=== PATIENT | male | born 1965 | race Caucasian/White ===

== ENCOUNTER 2018-07-16 22:09 | Emergency (ER) | payer OTHER, SELFPAY ==
[2018-07-16 22:31] VITALS: BP 157/87; PULSE 94; RESP 18; TEMP 36.5; O2SAT 99; BMI 24.2
--- NOTE | 2018-07-16 22:35 | PC.NURSE ---
He arrived with noel wrap and knee immobilizer and compression stocking in place.He received treatment at hospital in [place] and was discharged.He has crutches also.
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
[2018-07-16 23:06] VITALS: BP 157/87; PULSE 94; RESP 18; TEMP 36.5; O2SAT 99; BMI 24.2
--- NOTE | 2018-07-17 02:20 | ED_ITS ---
HPI - Extremity Injury (Lower) General Chief Complaint: Extremity Injury, Lower Stated Complaint: Lt Leg Pain Time Seen by Provider: 07/16/18 22:10 Source: patient and family Mode of arrival: ambulatory Limitations: no limitations History of Present Illness HPI Narrative: 52-year-old nonsmoker, healthy male presents with his for evaluation of a left knee injury suffered on Saturday. Patient is an avid climber and hiker and was hiking up in [place] on a [place] field when he fell and twisted his knee. He has had increasing pain and swelling of his knee over the past few days. He denies other injuries such as head or neck pain. His knee has become quite swollen and hurts worse with any ambulation. He denies numbness, tingling or weakness of his lower extremity. He was evaluated at an outside facility and had normal x-ray and was given a knee immobilizer and crutches. He presents today because of increasing swelling of his knee including purple ecchymosis on his anterior lower michaels. MD complaint: knee injury Onset (ago): day(s) Injury: Left: knee Type of Injury: unknown Place: street/outdoors Severity: moderate Relieving factors: immobilization Exacerbating factors: weight bearing and movement Context: fall Associated symptoms: snap/pop sensation, swelling and able to partially bear weight Other symptoms: none Treatments prior to arrival: cold therapy, bandage, NSAIDS and splint Review of Systems Review of Systems All systems reviewed & are unremarkable except as noted in HPI and below Constitutional Denies chills, Denies fever(s), Denies lethargy and Denies weakness Eyes Denies change in vision, Denies eye discharge, Denies irritation and Denies loss of vision ENT Ears, Nose, Mouth, and Throat: Denies change in voice, Denies neck pain and Denies sore throat Cardiovascular Denies chest pain, Denies irregular heart rhythm, Denies lightheadedness, Denies palpitations, Denies dyspnea, Denies dyspnea on exertion and Denies orthopnea Respiratory Denies cough, Denies dyspnea, Denies dyspnea on exertion and Denies wheezing Gastrointestinal Gastrointestinal: Denies abdominal pain, Denies change in bowel habits, Denies diarrhea, Denies nausea and Denies vomiting Genitourinary Denies hematuria, Denies flank pain, Denies urinary incontinence and Denies urinary urgency Musculoskeletal Reports joint swelling, Reports limited range of motion and Denies neck pain Integumentary/Breasts Denies pruritus, Denies erythema, Denies rash and Denies wounds Neurologic Denies confusion, Denies loss of vision and Denies weakness Psychiatric Denies anxiety, Denies confusion, Denies depression, Denies homicidal ideation and Denies suicidal ideation Endocrine Denies palpitations Hematologic/Lymphatic Denies easy bruising Allergic/Immunologic Denies wheezing [facility] Social History Smoking Status: Never smoker Exam Narrative Exam Narrative: GEN: AOx3 and in mild distress EYES: Pupils are equal, round, and reactive to light and accommodation. Extraoccular muscles are intact bilaterally. There is no subconjunctival hemorrhage or exudate. CHEST: Lungs are clear to auscultation bilaterally and free of wheezes, rales, or rhonchi. Heart rate is regular rhythm, there are no murmurs, clicks, rubs, or gallops. There is no chest wall tenderness. ABD: Abdomen is soft and nontender. There is no guarding or rebound. Bowel sounds are normal in all 4 quadrants. There is no mass or organomegaly. EXT: Decreased range of motion of left knee secondary to pain and significant swelling. There is a large effusion but no erythema or warmth. There is swelling of the lower extremity including purplish red ecchymosis along the anterior michaels and medial ankle. He has intact dorsalis pedis and sensation with cap refill less than 2 sec. Complete ligamentous examination very difficult given significant swelling and pain SKIN: Warm, pink, and dry. No erythema or rash Initial Vital Signs Initial Vital Signs: Vital Signs Temperature 97.7 F 07/16/18 22:31 Pulse Rate 94 H 07/16/18 22:31 Respiratory Rate 18 07/16/18 22:31 Blood Pressure 157/87 H 07/16/18 22:31 Pulse Oximetry 99 07/16/18 22:31 Course Orders Ordered: ED Orders 07/16/18 23:00 CT LE LT wo con Stat Consultations Consultation #1: Discussion with on-call orthopedics who was able to review the CT. He suggests weight-bearing as tolerated with knee immobilizer, crutches and follow up for likely MRI Vital Signs - 8 hr 07/16/18 22:31 07/16/18 23:06 Temperature 97.7 F 97.7 F Pulse Rate 94 H 94 H Respiratory Rate 18 18 Blood Pressure 157/87 H 157/87 H Pulse Oximetry 99 99 MDM - Extremity Injury (Lower) Differential Diagnosis Likely acute internal derangement of knee and fracture of femur Medical Records Attestation: I reviewed the patient's medical records. Imaging Data Knee CT: Radiologist's impression: small avulsion fracture of posterior lateral tibia Discharge Plan Departure Patient Disposition: Home Clinical Impression: Acute internal derangement of left knee Discharge Date/Time: 07/16/18 23:51 Interventions: ED Discharge Assessment Last Done: 07/16/18 23:45 Instructions: DI for Knee Pain Activity Restrictions/Additional Instructions: *You have been diagnosed with [ internal derangement left knee with avulsion fracture ] *What to do: *Take medications as directed *Follow up with Orthopedics, call for an appointment. Let them know you were seen in the Emergency Department and that we ask that you be seen in follow up *Return to ER if you should have any new, worsening or concerning symptoms * weight-bearing as tolerated Referrals: Good Yoder MD [Physician] -
== END 2018-07-16 23:52 | disposition home or self-care (01) ==
PROVIDERS: Emergency Provider Emergency Medicine; Family Provider Family Medicine; PCP Family Medicine
DX: M23.92 Unspecified internal derangement of left knee (principal); W01.0XXA Fall on same level from slipping, tripping and stumbling without subsequent striking against object, initial encounter
CPT/HCPCS: 73700; 99281; 99282; 99283

== ENCOUNTER → 2018-10-28 15:52 | Outpatient (CLI) | payer OTHER, SELFPAY | DX: Z23 Encounter for immunization (principal) | CPT/HCPCS: 90471; 90686 ==

== ENCOUNTER → 2019-09-22 10:27 | Outpatient (CLI) | payer OTHER, SELFPAY | DX: Z23 Encounter for immunization (principal) | CPT/HCPCS: 90471; 90686 ==

== ENCOUNTER → 2020-08-19 | Outpatient (CLI) | payer OTHER, SELFPAY | PROVIDERS: Referring Provider Internal Medicine; Visit Provider Internal Medicine | DX: Z23 Encounter for immunization (principal) | CPT/HCPCS: 90471; 90686 ==

== ENCOUNTER → 2020-10-19 10:57 | Outpatient (CLI) | payer OTHER, SELFPAY ==
[2020-10-19 13:17] LABS: COVID19 -Nasal RAPID Negative (Negative)
== END ==
PROVIDERS: Visit Provider Nurse Practitioner
DX: Z20.828 Contact with and (suspected) exposure to other viral communicable diseases (principal)
CPT/HCPCS: 87635

== ENCOUNTER → 2020-10-20 10:03 | Outpatient (CLI) | payer OTHER, SELFPAY ==
[2020-10-20] MEDS: COVID-19 VACC(MODERNA-1)/PF 100 MCG/0.5 ML VIAL IM (10:13)
== END ==
PROVIDERS: Visit Provider Internal Medicine
DX: Z23 Encounter for immunization (principal)
CPT/HCPCS: 0011A; 91301

== ENCOUNTER → 2020-11-17 14:18 | Outpatient (CLI) | payer OTHER, SELFPAY ==
[2020-11-17] MEDS: COVID-19 VACC #2, MRNA(MOD) 100 MCG/0.5 ML VIAL IM (14:25)
== END ==
PROVIDERS: Visit Provider Internal Medicine
DX: Z23 Encounter for immunization (principal)
CPT/HCPCS: 0012A; 91301

== ENCOUNTER 2020-12-05 20:49 | Emergency (ER) | payer OTHER, SELFPAY ==
[2020-12-05 21:07] VITALS: BP 149/82; PULSE 101; RESP 12; TEMP 36.1; O2SAT 97; BMI 24.2
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
[2020-12-05] MEDS: OXYCODONE/APAP 5/325 PREPACK 1 BOTTLE MISC (21:45)
[2020-12-05] MEDS: IBUPROFEN 400 MG TABLET PO (21:45)
[2020-12-05] MEDS: OXYCODONE/ACETAMINOPHEN 5/325 TABLET 1 TAB PO (21:45)
[2020-12-05 22:33] VITALS: BP 151/83; PULSE 96; RESP 14; O2SAT 92
== END 2020-12-05 22:34 | disposition home or self-care (01) ==
PROVIDERS: Emergency Provider Emergency Medicine
DX: M23.91 Unspecified internal derangement of right knee (principal); X50.1XXA Overexertion from prolonged static or awkward postures, initial encounter
CPT/HCPCS: 99281; 99283

== ENCOUNTER 2021-01-23 23:17 | Emergency (ER) | payer OTHER, SELFPAY ==
[2021-01-23 23:22] VITALS: BP 166/92; PULSE 96; RESP 20; TEMP 37.3; O2SAT 98
--- NOTE | 2021-01-23 23:29 | DI.US.S_ITS ---
PROCEDURE: US PERIPH VENOUS LOW EXTREM RT INDICATIONS: EDEMA POST OP TECHNIQUE: Real-time imaging, as well as color and pulse Doppler interrogation, were performed of the lower extremity deep veins from the inguinal ligament to the popliteal fossa. COMPARISON: None. FINDINGS: The common femoral, femoral and popliteal veins are normally compressible, and free of intraluminal thrombus. Color and pulse Doppler demonstrate normal phasic intraluminal flow. There is normal augmentation response to distal compression maneuver. IMPRESSION: No DVT in the right lower extremity. Dictated by: Sky Townsend M.D. on 01/24/2021 at 7:34 Approved by: Sky Townsend M.D. on 01/24/2021 at 7:34
[2021-01-23 23:54] LABS: Add Manual Diff / Slide Review NO; Basophils Absolute Auto 100 /uL (0-100); Basophils Percent Auto 1.3 % (0-2); Eosinophils Absolute Auto 300 /uL (0-450); Eosinophils Percent Auto 3.6 % (2-4); Hematocrit 41.5 % (41-53); Lymphocytes Absolute Auto 2200 /uL (1100-4500); Lymphocytes Percent Auto 26.3 % (25-40); Mean Corpuscular HGB Conc 33.8 % (30-36); Mean Corpuscular Hemoglobin 30.5 PG (26-34); Mean Corpuscular Volume 90.1 fL (80-100); Monocytes Absolute Auto 700 /uL (0-900); Monocytes Percent Auto 8.8 % (3-14); Neutrophils Absolute Auto 4900 /uL (1500-7000); Platelet Count 420 X10^3/uL (150-400); Red Cell Distribution Width 12.5 % (11.6-14.8); White Blood Cell Count 8.2 X10^3/uL (4.5-11.0)
[2021-01-24] LABS: Blood Urea Nitrogen 23 mg/dL (9-20); Calcium 9.1 mg/dL (8.4-10.2); Carbon Dioxide 26 mmol/L (22-32); Chloride 105 mmol/L (98-107); Estimated Glomerular Filt Rate > 60.0 mL/min (>60); Glucose 113 mg/dL (70-100); HEMOLYSIS 17 (0-50); Potassium 3.7 mmol/L (3.4-5.1); Sodium 139 mmol/L (137-145)
[2021-01-24 00:20] VITALS: BP 149/78; PULSE 95; RESP 16; O2SAT 96
--- NOTE | 2021-01-24 01:56 | ED.EXTPRO ---
HPI - Extremity Problem General Chief complaint: Extremity Problem,Nontraumatic Stated complaint: right leg bruising,swelling, hasnt felt right Time Seen by Provider: 01/23/21 23:21 Source: patient Mode of arrival: Ambulatory Limitations: no limitations History of Present Illness HPI Narrative: 55-year-old male nonsmoker without any significant medical history presents with a chief complaint of dark purple bruising to the right medial thigh and some calf pain over the past week. He recently had an ACL repaired with our orthopedic group. He presents with concern about a possible deep vein clot. He denies any chest pain or shortness of breath but did state that he felt some palpitations earlier. He denies any numbness, tingling or weakness. He denies any chest pain or shortness of breath. He does have some pain in his calf and minimal pain in his knee. His discomfort is made worse with motion and improves with rest. MD Complaint: extremity pain and extremity swelling Onset (ago): day(s) Pain Consistency: constant Location: right, lower extremity and knee Quality: aching Radiation: none Relieving factors: nothing Exacerbating factors: weight bearing and walking Associated symptoms: other Context: recent surgery/procedure Related Data Allergies Allergy/AdvReac Type Severity Reaction Status Date / Time No Known Drug Allergies Allergy Unverified 12/05/20 21:10 Review of Systems Constitutional Constitutional: Denies chills, Denies fatigue, Denies fever(s), Denies frequent falls, Denies lethargy and Denies weakness Eyes Eyes: Denies change in vision, Denies eye discharge, Denies irritation and Denies loss of vision ENT Ears, Nose, Mouth, and Throat: Denies change in voice, Denies dizziness, Denies neck pain, Denies sore throat and Denies throat swelling Cardiovascular Cardiovascular: Denies chest pain, Denies irregular heart rhythm, Denies lightheadedness, Denies palpitations, Denies dyspnea, Denies dyspnea on exertion and Denies orthopnea Respiratory Respiratory: Denies cough, Denies dyspnea, Denies dyspnea on exertion and Denies wheezing Gastrointestinal Gastrointestinal: Denies abdominal pain, Denies change in bowel habits, Denies diarrhea, Denies nausea and Denies vomiting Musculoskeletal Musculoskeletal: Reports arthralgias, Reports joint swelling, Denies neck pain and Denies numbness Integumentary/Breasts Skin/Breast: Denies pruritus, Denies erythema, Denies rash, Reports unusual bruising and Denies wounds Neurologic Neurologic: Denies behavioral changes, Denies confusion, Denies dizziness, Denies frequent falls, Denies loss of vision, Denies numbness and Denies weakness Psychiatric Psychiatric: Denies anxiety, Denies behavioral changes, Denies confusion, Denies depression, Denies homicidal ideation and Denies suicidal ideation Endocrine Endocrine: Denies fatigue, Denies flushing and Denies palpitations Hematologic/Lymphatic Hematologic/Lymphatic: Denies easy bruising Allergic/Immunologic Allergic/Immunologic: Denies urticaria, Denies throat swelling and Denies wheezing Patient History Social History Smoking Status: Never smoker Smoking Status: Never smoker alcohol intake frequency: a few times a month Substance Use Type: does not use Exam Narrative Exam Narrative: GENERAL: [56] year old patient appears stated age. Well-nourished, well-developed patient, in mild distress. HEAD: Atraumatic. Normocephalic. EYES: Pupils equal round and reactive. Extraocular motions intact. No scleral icterus. No injection or drainage. ENT: Nose without bleeding, purulent drainage. Throat without erythema, tonsillar hypertrophy or exudate. Airway patent. NECK: Trachea midline. Non tender CARDIOVASCULAR: Regular rate and rhythm without murmurs, gallops, or rubs. RESPIRATORY: Clear to auscultation. Breath sounds equal bilaterally. No wheezes, rales, or rhonchi. GASTROINTESTINAL: Abdomen soft, non-tender, nondistended. EXTREMITIES: Right knee with full but painful range of motion, minimal swelling, no erythema, warmth. Large area of dark purple ecchymosis in the right medial thigh without swelling or erythema. Mild pain on palpation of calf, no significant swelling, erythema or warmth. Sensation and pulses intact. Compartments soft BACK: Nontender without deformity or crepitance. No flank tenderness. NEURO: AOx3. SKIN: No rash or erythema of visible areas Initial Vital Signs Initial Vital Signs: Vital Signs Temperature 99.2 F 01/23/21 23:22 Pulse Rate 96 H 01/23/21 23:22 Respiratory Rate 20 01/23/21 23:22 Blood Pressure 166/92 H 01/23/21 23:22 Pulse Oximetry 98 01/23/21 23:22 Course Orders Ordered: ED Orders 01/23/21 23:29 periph venous low extrem rt Stat 01/23/21 23:40 Basic Metabolic Panel Stat Complete Blood Count AUTO DIFF Stat Vital Signs Vital signs: Vital Signs - 8 hr 01/23/21 23:22 01/24/21 00:20 Temperature 99.2 F Pulse Rate 96 H 95 H Respiratory Rate 20 16 Blood Pressure 166/92 H 149/78 H Pulse Oximetry 98 96 MDM - Extremity (Nontraumatic) Lab Data Result diagrams: 01/23/21 23:40 01/23/21 23:40 Labs: Lab Results 01/23/21 01/23/21 Range/Units 23:40 23:40 WBC 8.2 (4.5-11.0) X10^3/uL RBC 4.60 (4.5-5.9) X10^6/uL Hgb 14.0 (13.5-17.5) g/dL Hct 41.5 (41-53) % MCV 90.1 (80-100) fL MCH 30.5 (26-34) PG MCHC 33.8 (30-36) % RDW 12.5 (11.6-14.8) % Plt Count 420 H (150-400) X10^3/uL Neut % (Auto) 60.0 (50-75) % Lymph % (Auto) 26.3 (25-40) % [place] % (Auto) 8.8 (3-14) % Eos % (Auto) 3.6 (2-4) % Baso % (Auto) 1.3 (0-2) % Neut # (Auto) 4900 (4709-3003) /uL Lymph # (Auto) 2200 (4686-0730) /uL [place] # (Auto) 700 (0-900) /uL Eos # (Auto) 300 (0-450) /uL Baso # (Auto) 100 (0-100) /uL Sodium 139 (137-145) mmol/L Potassium 3.7 (3.4-5.1) mmol/L Chloride 105 (98-107) mmol/L Carbon Dioxide 26 (22-32) mmol/L BUN 23 H (9-20) mg/dL Creatinine 0.82 (0.66-1.25) mg/dL Estimated GFR > 60.0 (>60) mL/min BUN/Creatinine Ratio 28.0 H (6-22) Glucose 113 H (70-100) mg/dL Calcium 9.1 (8.4-10.2) mg/dL Imaging Data US - DVT: Radiologist's Impression: No DVT MDM Narrative Medical decision making narrative: Patient with postoperative bruising and some discomfort presents with concern for DVT. Though the amount of ecchymosis is impressive there is no significant or unexpected swelling, erythema or tenderness. Ultrasound demonstrates compressible vessels and no suggestion of clot. H&H is stable, no signs of anemia. Compartments are soft and no suggestion of compartment syndrome. Knee examination is consistent with expected postsurgical findings, no significant effusion, erythema or warmth nor significant pain with passive range of motion to suggest septic arthritis. Extensive discussion regarding return precautions and importance of close follow-up. Patient and significant other understand and are in agreement with the plan and the diagnosis. Questions answered to their apparent satisfaction Discharge Plan Departure Patient Disposition: Home Clinical Impression: Hematoma Instructions: DI for Hematoma (Bruise) Activity Restrictions/Additional Instructions: *You have been diagnosed with [postsurgical hematoma of right lower extremity, ultrasound shows no clot within the deep vein and blood counts are very reassuring.] *What to do: *Take medications as directed *Follow up with your orthopedic provider in 2-3 days, call for an appointment. Let them know you were seen in the Emergency Department and that we ask that you be seen in follow up *Return to ER if you should have any new, worsening or concerning symptoms, such as [worsening pain, swelling, fever greater than 101 F, or other bothersome symptoms ]
== END 2021-01-24 00:21 | disposition home or self-care (01) ==
PROVIDERS: Emergency Provider Emergency Medicine
DX: L76.32 Postprocedural hematoma of skin and subcutaneous tissue following other procedure (principal)
CPT/HCPCS: 36415; 80048; 85025; 93971; 99283; 99284

== ENCOUNTER → 2021-06-14 08:19 | Outpatient (CLI) | payer OTHER, SELFPAY ==
[2021-06-14 12:16] LABS: COVID-19 CEPHEID PCR (VTM/NP) POSITIVE (Negative)
== END ==
PROVIDERS: Visit Provider Physician Assistant
DX: U07.1 COVID-19 (principal)
CPT/HCPCS: U0003

== ENCOUNTER 2021-08-07 07:47 | Emergency (ER) | payer OTHER, SELFPAY ==
[2021-08-07 08:39] VITALS: BP 146/90; PULSE 79; RESP 18; TEMP 37; O2SAT 98; BMI 25.0
--- NOTE | 2021-08-07 08:50 | ED_ITS ---
HPI - Extremity Injury (Lower) General Chief Complaint: Extremity Injury, Lower Stated Complaint: Left knee injury Time Seen by Provider: 08/07/21 08:50 Source: patient Mode of arrival: Ambulatory Limitations: no limitations History of Present Illness HPI Narrative: Patient is a 56-year-old male with previous left knee injury presenting with 3 days of left knee pain. He says 3 days ago at work he was going down the stairs when he heard a pop. It became swollen and itchy. Swelling and pain have gone down will wearing a brace. However it is still quite painful. He previously had an ACL repair a few years ago. He has no numbness tingling or weakness. Related Data Allergies Allergy/AdvReac Type Severity Reaction Status Date / Time No Known Drug Allergies Allergy Verified 08/07/21 08:39 Review of Systems Review of Systems Narrative: GENERAL: Denies chills,fever HEENT: Denies throat pain RESPIRATORY: Denies dyspnea, cough, wheezing CARDIOVASCULAR: Denies chest pain, palpitations GASTROINTESTINAL: Denies nausea, vomiting MUSCULOSKELETAL: See HPI SKIN: No rash, no laceration, no pruritus NEUROLOGIC: Denies weakness, dizziness, headache, numbness 8 point review of systems is negative except for those stated above and HPI Patient History Social History Smoking Status: Never smoker Smoking Status: Never smoker alcohol intake frequency: a few times a month Substance Use Type: does not use Exam Initial Vital Signs Initial Vital Signs: Vital Signs Temperature 98.6 F 08/07/21 08:39 Pulse Rate 79 08/07/21 08:39 Respiratory Rate 18 08/07/21 08:39 Blood Pressure 146/90 H 08/07/21 08:39 Pulse Oximetry 98 08/07/21 08:39 GENERAL: Well-appearing, well-nourished and in no acute distress. CARDIOVASCULAR: peripheral pulses in tact, cap refill <2 sec RESPIRATORY: No respiratory distress, speaks in full sentences without difficulty EXTREMITIES: Normal range of motion, no clubbing or edema. Neurovascularly intact. left knee mild swelling no erythema good flexion and extension no had no numbness tingling or weakness distal pedal pulses intact NEUROLOGICAL: Cranial nerves II through XII grossly intact. Normal gait and speech. SKIN: Warm, dry, no petechiae, no rashes or lesions. Course Orders Ordered: ED Orders 08/07/21 08:58 XR knee LT 3V Stat Vital Signs Vital signs: Vital Signs - 8 hr 08/07/21 08:39 Temperature 98.6 F Pulse Rate 79 Respiratory Rate 18 Blood Pressure 146/90 H Pulse Oximetry 98 MDM - Extremity Injury (Lower) Imaging Data Extremity x-ray #1: Radiologist's Impression: PROCEDURE:? XR KNEE LT 3V ? INDICATIONS:? pain injury ? TECHNIQUE:? 3 views of the knee were acquired.? ? COMPARISON:? None. ? FINDINGS:? ? Bones:? Patient is status post prior ACL repair with postsurgical changes seen in lateral femoral condyle and medial portion of proximal tibia.? No fractures or dislocations.? Mild tricompartmental osteoarthritis is seen more prominent in medial femoral tibial compartment.? No suspicious bony lesions.? ? Soft tissues:? Small suprapatellar joint effusion is no.? No suspicious soft tissue calcifications.? ? ? IMPRESSION:? Prior ACL repair.? Anatomic left knee alignment.? No acute fracture or dislocation.? Mild tricompartmental osteoarthritis.? Small joint effusion. ? ? Dictated by: Roel Gutiérrez M.D. on 08/07/2021 at 9:18 ? ? [facility] Narrative Medical decision making narrative: Patient does have some mild swelling of his left knee previous injury x-ray is negative. This time recommend patient follow-up. He is offered pain medications but does not need any at this time. Discharge Plan Departure Patient Disposition: Home Clinical Impression: Strain of knee and leg, left Qualifiers: Encounter type: initial encounter Qualified Code(s): S86.912A - Strain of unsp ecified muscle(s) and tendon(s) at lower leg level, left leg, initial encounter Instructions: DI for Knee Sprain Activity Restrictions/Additional Instructions: *You have been diagnosed with left knee sprain *What to do: At this time recommend elevating icing and wearing a knee brace while active. He will need to follow-up with orthopedics. Possible outpatient MRI. *Continue to take medications as directed Continue Tylenol and Motrin as directed *Follow up with your primary care provider in 2-[address] Jordan or Orthopedics this week *Return to ER if you should have increasing swelling, redness, fever, pain or any new, worsening or concerning symptoms Referrals: [facility] [Provider Group] Miscellaneous,Doctor[facility] [Primary Care Provider] -
--- NOTE | 2021-08-07 08:58 | DI.RAD.S_ITS ---
PROCEDURE: XR KNEE LT 3V INDICATIONS: pain injury TECHNIQUE: 3 views of the knee were acquired. COMPARISON: None. FINDINGS: Bones: Patient is status post prior ACL repair with postsurgical changes seen in lateral femoral condyle and medial portion of proximal tibia. No fractures or dislocations. Mild tricompartmental osteoarthritis is seen more prominent in medial femoral tibial compartment. No suspicious bony lesions. Soft tissues: Small suprapatellar joint effusion is no. No suspicious soft tissue calcifications. IMPRESSION: Prior ACL repair. Anatomic left knee alignment. No acute fracture or dislocation. Mild tricompartmental osteoarthritis. Small joint effusion. Dictated by: Roel Gutiérrez M.D. on 08/07/2021 at 9:18 Approved by: Roel Gutiérrez M.D. on 08/07/2021 at 9:19
== END 2021-08-07 09:45 | disposition home or self-care (01) ==
PROVIDERS: Emergency Provider Emergency Medicine
DX: S86.912A Strain of unspecified muscle(s) and tendon(s) at lower leg level, left leg, initial encounter (principal); Y93.01 Activity, walking, marching and hiking; Y99.0 Civilian activity done for income or pay
CPT/HCPCS: 73562; 99281; 99283

== ENCOUNTER → 2021-09-08 17:17 | Outpatient (CLI) | payer OTHER, SELFPAY ==
[2021-09-08] MEDS: COVID-19 VACC #3, MRNA(MOD) 50 MCG/0.25 ML VIAL IM (17:41)
== END ==
PROVIDERS: Visit Provider Internal Medicine
DX: Z23 Encounter for immunization (principal)
CPT/HCPCS: 0013A; 91301

== ENCOUNTER → 2022-08-24 13:57 | Outpatient (CLI) | payer OTHER, SELFPAY | PROVIDERS: Referring Provider Internal Medicine; Visit Provider Internal Medicine | DX: Z23 Encounter for immunization (principal) | CPT/HCPCS: 90471; 90686 ==

== ENCOUNTER → 2023-09-20 13:59 | Outpatient (CLI) | payer OTHER, SELFPAY | PROVIDERS: Referring Provider Family Medicine; Visit Provider Family Medicine | DX: Z23 Encounter for immunization (principal) | CPT/HCPCS: 90471; 90686 ==

== ENCOUNTER 2023-11-23 08:30 | Emergency (ER) | payer OTHER, SELFPAY ==
[2023-11-23] MEDS: PROPARACAINE 0.5% OPHTH SOL 1 DROPS EYE-RIGHT (08:36)
[2023-11-23] MEDS: FLUORESCEIN 1 MG STRIP EYE-BOTH (08:36)
[2023-11-23 08:40] VITALS: BP 149/98; PULSE 99; RESP 16; TEMP 36.6; O2SAT 99; BMI 25.0
--- NOTE | 2023-11-23 08:43 | ED.GENADULT ---
HPI - General Adult General Chief complaint: Eye Problems Stated complaint: VISION CHANGES IN R/EYE Time Seen by Provider: 11/23/23 08:31 Source: patient Mode of arrival: Ambulatory Limitations: no limitations History of Present Illness HPI narrative: 58-year-old male. 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 He does use eyedrops. His eye doctor tells him to place them in both eyes. Yesterday he had onset of some floaters and flashes specifically in his right eye. He also had a slight headache yesterday. Floaters and flashes returned today. He has no left eye tenderness. No loss of vision. No sinus congestion. No upper or lower extremity numbness or weakness. Related Data Allergies Allergy/AdvReac Type Severity Reaction Status Date / Time No Known Drug Allergies Allergy Verified 08/07/21 08:39 Review of Systems Constitutional Constitutional: Reports system reviewed and no additional complaints, except as documented Eyes Eyes: Reports system reviewed and no additional complaints, except as documented ENT Ears, Nose, Mouth, and Throat: Reports system reviewed and no additional complaints, except as documented Integumentary/Breasts Skin/Breast: Reports system reviewed and no additional complaints, except as documented Neurologic Neurologic: Reports system reviewed and no additional complaints, except as documented Patient History Social History Smoking Status: Never smoker Smoking Status: Never smoker alcohol intake frequency: a few times a month Substance Use Type: does not use Exam Initial Vital Signs Initial Vital Signs: Vital Signs Temperature 97.9 F 11/23/23 08:40 Pulse Rate 99 H 11/23/23 08:40 Respiratory Rate 16 11/23/23 08:40 Blood Pressure 149/98 H 11/23/23 08:40 Pulse Oximetry 99 11/23/23 08:40 Oxygen Delivery Method Room Air 11/23/23 08:40 HENMT Head: normal to inspection and normocephalic Face and sinus: normal facial exam Eyes Pupils: PERRL EOM: EOM intact bilaterally Other: Intra-ocular pressure left eye 22, intra-ocular pressure right eye 20. Fluorescein used in the right eye. No corneal abrasion or foreign body noted. Bedside ultrasound of the right eye shows no retinal detachment. Skin General: no rashes or lesions noted Neuro General: patient alert, patient awake, patient oriented x3 and moves all extremities Cognition: normal cognition Speech: speech normal Gait: normal gait Extrem General: normal to inspection Course Orders Ordered: ED Orders 11/23/23 08:56 CT head/brain wo con Stat Discontinued Medications Fluorescein Sodium (Fluorescein 1 Mg Strip) 1 mg EYE-BOTH NOW ONE Stop: 11/23/23 08:33 Last Admin: 11/23/23 08:36 Dose: 1 mg Documented By: RB Proparacaine HCl (Proparacaine 0.5% Ophth Lela) 1 drops EYE-RIGHT NOW ONE Stop: 11/23/23 08:33 Last Admin: 11/23/23 08:36 Dose: 1 drop Documented By: RB Vital Signs Vital signs: Vital Signs - 8 hr 11/23/23 08:40 Temperature 97.9 F Pulse Rate 99 H Respiratory Rate 16 Blood Pressure 149/98 H Pulse Oximetry 99 Oxygen Delivery Method Room Air Medical Decision Making Imaging Data CT scan - head: Radiologist's Impression: PROCEDURE: CT HEAD/BRAIN WO CON INDICATIONS: R eye vision changes TECHNIQUE: Noncontrast 4.5 mm thick angled axial sections acquired from the foramen magnum to the vertex, with coronal and sagittal reformats. For radiation dose reduction, the following was used: automated exposure control, adjustment of mA and/or kV according to patient size. COMPARISON: None. FINDINGS: Image quality: Diagnostic CSF spaces: Basal cisterns are patent. Lateral ventricles are symmetric. Volume: Mild volume loss Brain: No intracranial hemorrhage. Chance-white differentiation is grossly maintained. Craniofacial structures: No displaced fracture. Sinuses are clear. Orbits are intact. No significant paranasal sinus opacity. IMPRESSION: No acute intracranial pathology. If there is high concern for parenchymal pathology, consider further evaluation with MRI. [facility] Narrative Medical decision making narrative: Head CT is unremarkable. Bedside ultrasound does not show any indication of a retinal detachment. He is having floaters and flashes in his right eye. What he describes as most consistent with vitreous detachment. Intra-ocular pressure is unremarkable. Visual acuity is unremarkable. He does wear corrective lenses. We did discuss vitreous detachment. We discussed that over the next 2 weeks he is at higher risk for retinal detachment which I do not think is happening today. Advised that he contact his eye doctor for a follow-up within the next 2 weeks. He was given return precautions. He expressed understanding and agreement. Discharge Plan Departure Patient Disposition: Home Clinical Impression: Visual floaters, Vitreous flashes of both eyes Instructions: DI for Visual Field Disturbances Activity Restrictions/Additional Instructions: Continue to take all of your medications as directed. I do recommend on Saturday you contact your eye doctor for a follow-up some time within the next 2 weeks. If your symptoms worsen to include a loss of vision please return to the emergency department for further evaluation. Stand Alone Forms: Patient Portal/API
--- NOTE | 2023-11-23 08:56 | DI.CT.S_ITS ---
PROCEDURE: CT HEAD/BRAIN WO CON INDICATIONS: R eye vision changes TECHNIQUE: Noncontrast 4.5 mm thick angled axial sections acquired from the foramen magnum to the vertex, with coronal and sagittal reformats. For radiation dose reduction, the following was used: automated exposure control, adjustment of mA and/or kV according to patient size. COMPARISON: None. FINDINGS: Image quality: Diagnostic CSF spaces: Basal cisterns are patent. Lateral ventricles are symmetric. Volume: Mild volume loss Brain: No intracranial hemorrhage. Chance-white differentiation is grossly maintained. Craniofacial structures: No displaced fracture. Sinuses are clear. Orbits are intact. No significant paranasal sinus opacity. IMPRESSION: No acute intracranial pathology. If there is high concern for parenchymal pathology, consider further evaluation with MRI. Dictated by: Enzo Loera M.D. on 11/23/2023 at 9:13 Approved by: Enzo Loera M.D. on 11/23/2023 at 9:14
--- NOTE | 2023-11-23 09:10 | PC.NURSE ---
Dr Fitzgerald at bedside with beasley lamp. Bedside occular US preformed. Pt in NAD at this time.
[2023-11-23 09:36] VITALS: PULSE 88; RESP 16; O2SAT 99
== END 2023-11-23 09:36 | disposition home or self-care (01) ==
PROVIDERS: Emergency Provider Emergency Medicine
DX: H43.391 Other vitreous opacities, right eye (principal); H53.19 Other subjective visual disturbances
CPT/HCPCS: 70450; 99282; 99284

== ENCOUNTER 2025-01-09 18:51 | Emergency (ER) | payer OTHER, SELFPAY ==
[2025-01-09 19:03] VITALS: BP 138/77; PULSE 88; RESP 16; TEMP 36.4; O2SAT 98; BMI 24.2
--- NOTE | 2025-01-09 19:08 | DI.RAD.S_ITS ---
PROCEDURE: XR KNEE RT 3V INDICATIONS: felt a pop/no fall TECHNIQUE: 3 views of the knee were acquired. COMPARISON: [facility], CR, XR KNEE LT 3V, 08/07/2021, 9:06. FINDINGS AND IMPRESSION: ACL replacement sequelae. Small joint effusion. No acute displaced fracture or dislocation. Slight lateral patellar tilt. If there is high concern for further derangement, consider MRI evaluation. Dictated by: Enzo Loera M.D. on 01/09/2025 at 19:57 Approved by: Enzo Loera M.D. on 01/09/2025 at 20:00
--- NOTE | 2025-01-09 22:17 | ED_ITS ---
HPI - Extremity Injury (Lower) General Chief Complaint: Extremity Injury, Lower Stated Complaint: Knee pain Time Seen by Provider: 01/09/25 18:52 Source: patient, RN notes reviewed and old records reviewed Mode of arrival: Ambulatory Limitations: no limitations History of Present Illness HPI Narrative: 59-year-old male history of left knee replacement 3 months ago and ACL graft 4 years prior on right knee presents with a complaint of right knee pain. Patient states 2 or 3 days ago started having little bit of pain stepped off a curb at rest. States he was not twisting to step-down particularly hard but felt a pop had immediate pain has been unwell to weightbear without significant pain. He can flex and extended but it was painful he notes it feels very unstable like it is going to give out. Denies any other injuries. No numbness tingling or weakness otherwise. Has not knee immobilizer he has been using. Had his ACL graft with Dr. Jordan as his orthopedic surgeon but they have retired. He saw an orthopedic surgeon for his left knee replacement at [facility]. Known drug allergies. Has been cleared to fully weightbear in his left leg. Related Data Previous Rx's Medication Instructions Recorded hydrocodone 5 mg-acetaminophen 325 1 tab PO Q6H PRN pain #10 tabs 01/09/25 mg tablet Allergies Allergy/AdvReac Type Severity Reaction Status Date / Time No Known Drug Allergies Allergy Verified 08/07/21 08:39 Review of Systems Review of Systems ROS Unobtainable: All systems reviewed & are unremarkable except as noted in HPI and below Patient History Social History Smoking Status: Never smoker Smoking Status: Never smoker alcohol intake frequency: a few times a month Exam Narrative Exam Narrative: GENERAL: Alert and oriented x three, male in mild distress HEENT: Head normocephalic, atraumatic, EOMI, pupils reactive, face symmetric, moist mucous membranes NECK: Supple, full range of motion EXTREMITIES: Normal range of motion, no clubbing or edema. Neurovascularly intact. Joint laxity testing is negative with anterior-posterior drawer, normal valgus varus, compression test is negative. Patient has some mild tenderness at the posterior knee. Can fully flex and extend but it was more uncomfortable with full extension. Cap refills less than 2 seconds. 2+ posterior tibialis. No other bony tenderness with the about the thigh, knee, ankle or foot. NEUROLOGICAL: Cranial nerves II through XII grossly intact. Moving all extremities SKIN: Warm, dry, no petechiae, no rashes or lesions. Initial Vital Signs Initial Vital Signs: Vital Signs Temperature 97.6 F 01/09/25 19:03 Pulse Rate 88 01/09/25 19:03 Respiratory Rate 16 01/09/25 19:03 Blood Pressure 138/77 01/09/25 19:03 Pulse Oximetry 98 01/09/25 19:03 Oxygen Delivery Method Room Air 01/09/25 19:03 Course Orders Ordered: Discontinued Medications Hydrocodone Bitart/Acetaminophen (Hydrocodone/Acet 5/325 Prepack) 1 bottle MISC DIRECTED ONE Stop: 01/09/25 22:39 Last Admin: 01/09/25 22:47 Dose: 1 bottle Documented By: SEAN Vital Signs Vital signs: Vital Signs - 8 hr 01/09/25 19:03 Temperature 97.6 F Pulse Rate 88 Respiratory Rate 16 Blood Pressure 138/77 Pulse Oximetry 98 Oxygen Delivery Method Room Air MDM - Extremity Injury (Lower) MDM Narrative Medical decision making narrative: Right knee x-ray shows ACL replacement sequela, small joint effusion no acute displaced fracture or dislocation, slight lateral patellar tilt. Patient has a knee immobilizer already. They have crutches plan for weight- bearing as tolerated follow up with Orthopedic surgery. Patient has a own surgeon through [facility] but we will also give local follow up +short course of pain medication. Discharge Plan Departure Patient Disposition: Home Clinical Impression: Knee pain, left Instructions: DI for Knee Pain Activity Restrictions/Additional Instructions: Follow up with Orthopedic surgery, call Saturday to set up a follow up appointment. Contacts included below for local orthopedic surgery. You can take ibuprofen and/or acetaminophen as needed for pain in if inadequate for pain medication you can take 1-2 tablets [place] every 6 hours as needed. This medication can make you sleepy do not drive, perform hazardous activities or make any major decisions while taking it. This medication will make you constipated please take a stool softener once to twice daily until stools are soft and regular. Prescription sent to [facility] in [place]. You may weightbear as tolerated. Splint Care: Keep splint clean and dry. Elevated affected body part to decrease swelling. OK to use ice pack on the affected body part. Use for 15-20 minutes each time, for 5-6x per day. If you develop worsening pain, numbness, tingling, discoloration of the affected body part, loosen the splint by loosening the KATIE wrap, and either see your doctor for an urgent re-assessment, or return to the Emergency Department. Return to the Emergency Department for any new or worsening symptoms. Prescriptions: New hydrocodone-acetaminophen 5-325 mg tablet 1 tab PO Q6H PRN (Reason: pain) Qty: 10 0RF Referrals: Miscellaneous,MD Werner [Primary Care Provider] - Benji Carlson MD [Physician] - Stand Alone Forms: Patient Portal/API/Survey, Work Release Note
[2025-01-09] MEDS: HYDROCODONE/ACET 5/325 PREPACK 1 BOTTLE MISC (22:47)
== END 2025-01-09 23:00 | disposition home or self-care (01) ==
PROVIDERS: Emergency Provider Emergency Medicine
DX: M25.561 Pain in right knee (principal); M25.461 Effusion, right knee; Z98.890 Other specified postprocedural states
CPT/HCPCS: 73562; 99283